=== PATIENT | male | born 1950 | race Caucasian/White ===

== ENCOUNTER 2017-06-29 19:31 | Emergency (ER) | payer OTHER ==
[~2017-06-29] VITALS: Ht 172.7 cm; Wt 77.0 kg
[2017-06-29 19:47] VITALS: O2SAT 95; Ht 172.7 cm; Wt 77.0 kg
--- NOTE | 2017-06-29 20:18 | DIAGNOSTIC IMAGING REPORT ---
CHEST ONE VIEW PORTABLE CLINICAL HISTORY: 67 years-old Male presenting with ALCOHOL OD. TECHNIQUE: Portable supine AP view of the chest was obtained. COMPARISON: None. FINDINGS: Atherosclerosis of the aortic arch. Cardiac silhouette top normal in size. Minimal left basilar opacity may be present. Otherwise no focal opacity. No large effusion or pneumothorax. Degenerative changes of the left glenohumeral joint. Anterior cervical fusion hardware noted. Upper abdomen normal. IMPRESSION: 1. Minimal left basilar atelectasis may be present. Otherwise no acute cardiopulmonary disease. Electronically signed by: Chilango Colin M.D. 06/29/2017 8:16 PM Dictated Date/Time: 06/29/2017 8:15 PM
[2017-06-29 20:35] LABS: BASO % 0.7 %; BASO ABS # 0.04 K/uL (0-0.2); EOS % 1.7 %; HEMATOCRIT 38.8 % (42-52); IG# 0.06 K/uL (0.00-0.02); LYMPH % 25.7 %; LYMPH ABS # 1.47 K/uL (1.2-3.4); MEAN CELL VOLUME 86.8 fL (80-100); MEAN CORPUSCULAR HEMOGLOBIN 31.3 pg (25-34); MEAN CORPUSCULAR HGB CONC 36.1 g/dl (32-36); MEAN PLATELET VOLUME 10.2 fL (7.4-10.4); MONO % 7.3 %; MONO ABS # 0.42 K/uL (0.11-0.59); NEUT % 63.6 %; NEUT ABS # 3.63 K/uL (1.4-6.5); PLATELET COUNT 293 K/uL (130-400); RED CELL DISTRIBUTION WIDTH CV 13.6 % (11.5-14.5); RED CELL DISTRIBUTION WIDTH SD 43.5 fL (36.4-46.3); WHITE BLOOD COUNT 5.72 K/uL (4.8-10.8)
--- NOTE | 2017-06-29 20:40 | DIAGNOSTIC IMAGING REPORT ---
HEAD WITHOUT CONTRAST (CT) CLINICAL HISTORY: 67 years-old Male presenting with fall, EtOH. TECHNIQUE: Multidetector CT imaging of the head was performed without the use of intravenous contrast. IV contrast: None. A dose lowering technique was used consistent with the principles of ALARA (as low as reasonably achievable). COMPARISON: None. CT DOSE (mGy.cm): The estimated cumulative dose is 810.83 mGy.cm. FINDINGS: Thumb Sewer topogram: Unremarkable. Asymmetric dilatation of the right sylvian fissure, consistent with ex vacuo dilatation secondary to extensive basal ganglia lacunar infarcts, right greater than left. Extensive periventricular white matter hypoattenuation likely chronic small vessel ischemic change. Subtle gyral crowding and sulcal effacement at the vertex noted with a decreased callosal angle, which measures approximate 70 degrees. Old lacunar infarcts noted in the bilateral basal ganglia. No mass effect or midline shift. No hemorrhage or acute territorial infarct. No extra-axial fluid collection. Paranasal sinuses and mastoid air cells clear. Calvarium intact. IMPRESSION: 1. Findings suggest normal pressure hydrocephalus. 2. Extensive chronic small vessel ischemic change and bilateral basal ganglia lacunar infarcts. Electronically signed by: Chilango Colin M.D. 06/29/2017 8:39 PM Dictated Date/Time: 06/29/2017 8:34 PM
[2017-06-29 20:56] LABS: CALCIUM 8.3 mg/dl (8.5-10.1); CREATININE 0.91 mg/dl (0.60-1.40); POTASSIUM 3.6 mmol/L (3.5-5.1)
[2017-06-30] MEDS ORDERED: MOME6000 NAE (00:09)
[2017-06-30] MEDS ORDERED: NTRGSL/4 UT (00:09)
[2017-06-30] MEDS ORDERED: UMEC1AER INH (00:11)
[2017-06-30] MEDS ORDERED: AMLO-110 PO (00:12)
[2017-06-30] MEDS ORDERED: ATOR-24 PO (00:13)
[2017-06-30] MEDS ORDERED: ISOS30TA35 PO (00:15)
[2017-06-30] MEDS ORDERED: LISI-788 PO (00:16)
[2017-06-30] MEDS ORDERED: METO50TA16 PO (00:18)
--- NOTE | 2017-06-30 02:01 | EMERGENCY ROOM VISIT NOTE ---
History Report prepared by Jasson: Dominick Engle Under the Supervision of: Dr. Des Be D.O. First contact with patient: 19:38 Chief Complaint: ALCOHOL OVERDOSE Stated Complaint: SYNCOPE/INTOXICATED, R HAND, EAR LAC/HEAD ABRASION History of Present Illness The patient is a 67 year old male who presents to the Emergency Room with complaints of a fall s/p ETOH intoxication that occurred prior to arrival. The patient has a laceration on his right hand, abrasion to the right frontal region of his head, and a scratch on his left ear lobe. Per EMS, they are unsure if there was LOC. He denies abdominal pain, gun shot wounds, and leg pain. 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 Review of Systems See HPI for pertinent positives & negatives. A total of 10 systems reviewed and were otherwise negative. Past Medical & Surgical Medical Problems: (1) Cancer (2) Hypertension Surgical Problems: (1) History of heart artery stent Social History Alcohol Use: heavy Occupation Status: retired Current/Historical Medications Scheduled Amlodipine (Norvasc), 5 MG PO DAILY Atorvastatin (Lipitor), 40 MG PO DAILY Isosorbide Mononitrate Ext Rel (Imdur Ext Rel), 30 MG PO TID Lisinopril/Hctz (Zestoretic 20MG/25MG), 1 TAB PO DAILY Metoprolol Tartrate (Lopressor) (Lopressor), 50 MG PO DAILY Mometasone Furoate (Nasal) (Mometasone Furoate), 2 SPRAYS CATHERINE DAILY Nitroglycerin (Nitrostat), 0.4 MG UT PRN Umeclidinium-Vilanterol (Anoro Ellipta 62.5-25 Mcg/INH), 1 PUFF INH DAILY Allergies Coded Allergies: No Known Allergies (Unverified , 06/30/17) Physical Exam Vital Signs Date Time Temp Pulse Resp B/P (MAP) Pulse Ox O2 Delivery O2 Flow Rate FiO2 06/30/17 00:04 100 18 168/74 96 Room Air 06/29/17 21:44 84 19 179/90 94 Room Air 06/29/17 19:47 77 06/29/17 19:47 82 18 148/71 95 Room Air 06/29/17 19:47 95 Room Air Physical Exam CONSTITUTIONAL/VITAL SIGNS: Reviewed / noted above. GENERAL: Non-toxic in appearance. INTEGUMENTARY: Warm, dry, and [place]. HEAD: Abrasion to right lateral frontal region. Normocephalic. EYES: without scleral icterus or trauma. ENT/OROPHARYNX: Scratch on left ear lobe. Smell of ETOH on breath. Clear and moist. LYMPHADENOPATHY/NECK: Is supple without lymphadenopathy or meningismus. RESPIRATORY: Lungs clear and equal. CARDIOVASCULAR: Regular rate and rhythm. GI/ABDOMEN: Soft and nontender. No organomegaly or pulsatile mass. No rebound or guarding. Normal bowel sounds. EXTREMITIES: Small laceration on right thumb. Warm and well perfused. BACK: No CVA tenderness. NEUROLOGICAL: Slurring of Speech. Intact without focal deficits. PSYCHIATRIC: normal affect. MUSCULOSKELETAL: Normally developed with good muscle tone. Medical Decision & Procedures ER Provider Diagnostic Interpretation: Radiology results as stated below per my review and radiologist interpretation: CHEST ONE VIEW PORTABLE CLINICAL HISTORY: 67 years-old Male presenting with ALCOHOL OD. TECHNIQUE: Portable supine AP view of the chest was obtained. COMPARISON: None. FINDINGS: Atherosclerosis of the aortic arch. Cardiac silhouette top normal in size. Minimal left basilar opacity may be present. Otherwise no focal opacity. No large effusion or pneumothorax. Degenerative changes of the left glenohumeral joint. Anterior cervical fusion hardware noted. Upper abdomen normal. IMPRESSION: 1. Minimal left basilar atelectasis may be present. Otherwise no acute cardiopulmonary disease. Electronically signed by: Chilango Colin M.D. 06/29/2017 8:16 PM Dictated Date/Time: 06/29/2017 8:15 PM HEAD WITHOUT CONTRAST (CT) CLINICAL HISTORY: 67 years-old Male presenting with fall, EtOH. TECHNIQUE: Multidetector CT imaging of the head was performed without the use of intravenous contrast. IV contrast: None. A dose lowering technique was used consistent with the principles of ALARA (as low as reasonably achievable). COMPARISON: None. CT DOSE (mGy.cm): The estimated cumulative dose is 810.83 mGy.cm. 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 Asymmetric dilatation of the right sylvian fissure, consistent with ex vacuo dilatation secondary to extensive basal ganglia lacunar infarcts, right greater than left. Extensive periventricular white matter hypoattenuation likely chronic small vessel ischemic change. Subtle gyral crowding and sulcal effacement at the vertex noted with a decreased callosal angle, which measures approximate 70 degrees. Old lacunar infarcts noted in the bilateral basal ganglia. No mass effect or midline shift. No hemorrhage or acute territorial infarct. No extra-axial fluid collection. Paranasal sinuses and mastoid air cells clear. Calvarium intact. IMPRESSION: 1. Findings suggest normal pressure hydrocephalus. 2. Extensive chronic small vessel ischemic change and bilateral basal ganglia lacunar infarcts. Electronically signed by: Chilango Colin M.D. 06/29/2017 8:39 PM Dictated Date/Time: 06/29/2017 8:34 PM Laboratory Results 06/29/17 20:14 Red Blood Count 4.47, Mean Corpuscular Volume 86.8, Mean Corpuscular Hemoglobin 31.3, Mean Corpuscular Hemoglobin Concent 36.1, Mean Platelet Volume 10.2, Neutrophils (%) (Auto) 63.6, Lymphocytes (%) (Auto) 25.7, Monocytes (%) (Auto) 7.3, Eosinophils (%) (Auto) 1.7, Basophils (%) (Auto) 0.7, Neutrophils # (Auto) 3.63, Lymphocytes # (Auto) 1.47, Monocytes # (Auto) 0.42, Eosinophils # (Auto) 0.10, Basophils # (Auto) 0.04 06/29/17 20:14 Test 06/29/17 20:14 White Blood Count 5.72 K/uL (4.8-10.8) Red Blood Count 4.47 M/uL (4.7-6.1) Hemoglobin 14.0 g/dL (14.0-18.0) Hematocrit 38.8 % (42-52) Mean Corpuscular Volume 86.8 fL (80-100) Mean Corpuscular Hemoglobin 31.3 pg (25-34) Mean Corpuscular Hemoglobin Concent 36.1 g/dl (32-36) Platelet Count 293 K/uL (130-400) Mean Platelet Volume 10.2 fL (7.4-10.4) Neutrophils (%) (Auto) 63.6 % Lymphocytes (%) (Auto) 25.7 % Monocytes (%) (Auto) 7.3 % Eosinophils (%) (Auto) 1.7 % Basophils (%) (Auto) 0.7 % Neutrophils # (Auto) 3.63 K/uL (1.4-6.5) Lymphocytes # (Auto) 1.47 K/uL (1.2-3.4) Monocytes # (Auto) 0.42 K/uL (0.11-0.59) Eosinophils # (Auto) 0.10 K/uL (0-0.5) Basophils # (Auto) 0.04 K/uL (0-0.2) RDW Standard Deviation 43.5 fL (36.4-46.3) RDW Coefficient of Variation 13.6 % (11.5-14.5) Immature Granulocyte % (Auto) 1.0 % Immature Granulocyte # (Auto) 0.06 K/uL (0.00-0.02) Anion Gap 12.0 mmol/L (3-11) Est Creatinine Clear Calc Drug Dose 75.1 ml/min Estimated GFR () 100.0 Estimated GFR (Non- 86.3 BUN/Creatinine Ratio 17.2 (10-20) Calcium Level 8.3 mg/dl (8.5-10.1) Ethyl Alcohol mg/dL 308.3 mg/dl (0-3) Laboratory results as stated above per my review. ED Course 1938: Previous medical records were reviewed. The patient was evaluated in room B9. A complete history and physical examination was performed. 0030: I checked on the patient. Due to his blood alcohol level, he will be ready for reassessment at 0530 this morning. The patient will be signed out to Dr. Christianson. Medical Decision Differential includes close head injury, intracranial bleed, facial trauma, cervical spine trauma, chest and thoracic trauma, abdominal and intra-abdominal trauma, spine neurologic trauma, extremity trauma. This is a 67-year-old male who presents to the ED with a chief complaint of alcohol intoxication and fall. The patient brought was brought in here for evaluation by EMS. He denies any specific complaints. He does admit to drinking alcohol. The patient did suffer an abrasion to the right forehead during his fall and a small scratch to his left ear. The patient's exam was otherwise unremarkable for any significant abnormalities. The patient's alcohol level was 308. This was at [address] scan of the brain did not show acute intracranial pathology. There is some normal pressure hydrocephalus changes noted. Chest x-ray was negative for acute disease and his CBC was normal. Sodium and chloride are slightly low. The patient was told the results of the test. The patient's daughter is going to peanut picker the patient in the morning. She is coming from a distance away. Head Trauma GCS Score: 15 Medication Reconcilliation Current Medication List: was personally reviewed by me Blood Pressure Screening Patient's blood pressure: Elevated blood pressure Blood pressure disposition: Elevated BP felt to be situational Impression Primary Impression: Alcohol use with intoxication Additional Impression: Fall Scribe Attestation The scribe's documentation has been prepared under my direction and personally reviewed by me in its entirety. I confirm that the note above accurately reflects all work, treatment, procedures, and medical decision making performed by me. Departure Information Dispostion Home / Self-Care Referrals Terry Stewart (PCP) Patient Instructions My [facility] Additional Instructions Avoid excessive alcohol consumption. Follow-up with your doctor for further care and evaluation in 1-2 days. Return to the emergency department for worsening or new symptoms or any concerns. You have been examined and treated today on an emergency basis only. This is not a substitute for, or an effort to provide, complete comprehensive medical care. It is impossible to recognize and treat all injuries or illnesses in a single emergency department visit. It is therefore important that you follow up closely with your doctor. Call as soon as possible for an appointment. Problem Qualifiers
[2017-06-30] MEDS ORDERED: LISINOPRIL/HCTZ 10/12.5MG TAB PO STA (07:04)
[2017-06-30] MEDS ORDERED: METOPROLOL TARTRATE 50 MG TAB PO STA (07:04)
[2017-06-30] MEDS ORDERED: AMLODIPINE BESYLATE 5 MG TAB PO ONE (07:15)
[2017-06-30] MEDS ORDERED: ISOSORBIDE MONONITRATE 30 MG TABCR PO ONE (07:15)
[2017-06-30] MEDS ORDERED: NITROGLYCERIN 0.4 MG SL PER TAB CHARGE SL PRN (07:15)
[2017-06-30] MEDS ORDERED: ONDANSETRON INJ 2 MG/ML 2 ML VIAL ONE (07:22)
--- NOTE | 2017-06-30 07:28 | EMERGENCY ROOM VISIT NOTE ---
ED Visit Note First contact with patient: 02:20 Patient signed out to me by Dr. Be. Patient awaiting improved sobriety and for family to arrive. 0715: Patient still awaiting family. Patient here sober. At change of shift now patient began to complain of some mild chest pain to the nurse. States this is common for him, especially if he is missed medication. An EKG was done as a precaution, and his morning medications were ordered including his as needed nitroglycerin. EKG did not show any acute changes. Patient states this happens intermittently, and nearly always happens when he misses his medications. Patient states because of his intoxication last night he did not take his evening medications which include Imdur. Patient cautioned against excessive alcohol use, especially in light of his underlying medical problems. 0859: Patient with no recurrence of any pain following administration of his usual morning medications. Patient tolerating p.o. at bedside, attempting to contact family for ride.
[2017-06-30 09:31] VITALS: BP 133/58; PULSE 71; O2SAT 95
== END 2017-06-30 09:40 | disposition home or self-care (01) ==
LOC: EDBD 19:31 → C.EDB 19:33
DX: F10.929 Alcohol use, unspecified with intoxication, unspecified (principal); Y90.8 Blood alcohol level of 240 mg/100 ml or more; S00.81XA Abrasion of other part of head, initial encounter; S00.412A Abrasion of left ear, initial encounter; S61.011A Laceration without foreign body of right thumb without damage to nail, initial encounter; W19.XXXA Unspecified fall, initial encounter; R07.9 Chest pain, unspecified; I10 Essential (primary) hypertension; Z85.9 Personal history of malignant neoplasm, unspecified; Z95.5 Presence of coronary angioplasty implant and graft; Z79.899 Other long term (current) drug therapy